=== PATIENT | female | born 1970 | race Caucasian/White ===

== ENCOUNTER → 2018-09-05 10:29 | Outpatient (POV) | payer SELFPAY | PROVIDERS: PCP Internal Medicine; Visit Provider Dermatology | DX: Z00.00 Encounter for general adult medical examination without abnormal findings (principal) ==

== ENCOUNTER → 2018-11-08 12:36 | Outpatient (CLI) | payer BC, SELFPAY ==
--- NOTE | 2018-11-08 12:41 | XR_ITS ---
XR finger RT min 2V CLINICAL INDICATION: Pain ITS.REASON: Rt thumb trigger finger ORDERING PHYSICIAN: Rosy Reyes MD PATIENT AGE: 48 years Comparison: None FINDINGS: No bony or joint abnormality IMPRESSION: Negative right thumb
== END ==
PROVIDERS: PCP Internal Medicine; Visit Provider Orthopaedic Surgery
DX: M65.311 Trigger thumb, right thumb (principal)
CPT/HCPCS: 73140